=== PATIENT | female | born 1980 | race African-American/Black ===

== ENCOUNTER 2023-01-19 04:01 | Day surgery (SDC) | payer BC, OTHER ==
[2023-01-14 09:19] VITALS: BMI 33.6
[2023-01-19] MEDS ORDERED: IBUPROFEN 400 MG TABLET (FP) PO PRN (10:00)
[2023-01-19] MEDS ORDERED: oxyCODONE HCL 5 MG TABLET PO PRN (10:00)
[2023-01-19] MEDS ORDERED: ACETAMINOPHEN 325 MG TABLET (FP) PO PRN (10:00)
[2023-01-19] MEDS ORDERED: PROPOFOL 40 ML ONE (10:25)
[2023-01-19] MEDS ORDERED: MIDAZOLAM HCL 2 MG/2 ML SINGLE DOSE VIAL ONE (10:25)
[2023-01-19] MEDS ORDERED: SUCCINYLCHOLINE CHLORIDE 200 MG/10 ML SYRINGE ONE (10:25)
[2023-01-19] MEDS ORDERED: DOXYCYCLINE HYCLATE 100 MG VIAL IVPB ONE (10:45)
[2023-01-19] MEDS ORDERED: ONDANSETRON 4 MG/2 ML VIAL ONE (10:49)
[2023-01-19] MEDS ORDERED: KETOROLAC TROMETHAMINE 30 MG/1 ML VIAL ONE (10:49)
[2023-01-19] MEDS ORDERED: DEXAMETHASONE SOD PHOSPHATE 4 MG/1 ML VIAL ONE (10:49)
[2023-01-19] MEDS ORDERED: ONDANSETRON 4 MG/2 ML VIAL IVPUSH PRN (12:32)
[2023-01-19] MEDS ORDERED: LACTATED RINGERS SOLUTION 1,000 ML IV SCH (12:45)
[2023-01-19 14:31] VITALS: RESP 20
[2023-01-19 15:12] VITALS: BP 114/67; PULSE 83; TEMP 97.3
== END 2023-01-19 15:43 | disposition home or self-care (01) ==
LOC: JASU-SURG 04:01
PROVIDERS: ATTEND Obstetrics & Gynecology
PROC: 0UPD8HZ Removal of Contraceptive Device from Uterus and Cervix, Via Natural or Artificial Opening Endoscopic (ICD-10-PCS; principal; 2023-01-19 12:00)
DX: T83.89XA Other specified complication of genitourinary prosthetic devices, implants and grafts, initial encounter (principal); Y76.8 Miscellaneous obstetric and gynecological devices associated with adverse incidents, not elsewhere classified; Y92.9 Unspecified place or not applicable
CPT/HCPCS: 81025; 94760